=== PATIENT | male | born 1980 | race Caucasian/White ===

== ENCOUNTER 2019-04-20 16:58 | Emergency (ER) | payer SELFPAY ==
--- NOTE | 2019-04-20 17:01 | ER Report ---
History and Physical Time Seen By MD: 16:57 HPI/ROS Tripped over a gas hose at the [place], and fell onto his knee. Hit chin which is now bleeding. Able to ambulate. No complaints of knee pain. Has been holdng pressure on chin wound. No blood thinners. No other complaints. No neck pain or neuro deficits. Remainder of the 14 system rev: Yes Reviewed Nurses Notes: Yes Old Medical Records Reviewed: Yes Constitutional Vital Sign - Last 24 Hours 04/20/19 17:07 Temp 98.1 Pulse 99 Resp 16 B/P (MAP) 137/105 Pulse Ox 94 O2 Delivery Room Air Physical Exam General Appearance: The patient is alert, has no immediate need for airway protection and no current signs of toxicity. Head/face: avulsion to chin. No active bleeding. No laceration. Eyes: Pupils equal and round no injection. Respiratory: Chest is non tender, lungs are clear to auscultation. Cardiac: regular rate and rhythm Musculoskeletal: No bony TTP or swelling at right knee Neck: Neck is supple and non tender. Extremities have full range of motion and are non tender. Skin: chin avulsion and abrasion to right knee Medical Decision Making ED Course/Re-evaluation ED Course No closure needed. No bony TTP on exam, so no imaging needed. No midline c-spine pain. No neuro deficits. Tetnus given. Wound cleaned and dressed. Wound care instructions given. Decision to Disposition Date: Apr 20, 2019 Decision to Disposition Time: 17:35 Depart Departure Latest Vital Signs Vital Signs Date Time Temp Pulse Resp B/P (MAP) Pulse Ox O2 Delivery O2 Flow Rate FiO2 04/20/19 17:07 98.1 99 16 137/105 94 Room Air Impression: Primary Impression: Abrasions of multiple sites Condition: Improved Disposition: HOME OR SELF-CARE Patient Instructions: Acute Wound Care (ED) MARICARMEN PALACIOS MD Apr 20, 2019 17:01
[2019-04-20 17:07] VITALS: BP 137/105
[2019-04-20] MEDS ORDERED: DIPHTH/TETANUS/ACEL. PERTUSSIS IM ONLY ONE (17:30)
== END 2019-04-20 17:56 | disposition home or self-care (01) ==
LOC: ER 17:10
DX: S80.211A Abrasion, right knee, initial encounter (principal); S00.81XA Abrasion of other part of head, initial encounter; W01.0XXA Fall on same level from slipping, tripping and stumbling without subsequent striking against object, initial encounter
CPT/HCPCS: 90471; 90715; 99282

== ENCOUNTER → 2019-04-20 | Outpatient (CLI) | payer SELFPAY | LOC: AMB 16:35 | PROVIDERS: ATTEND Nurse Practitioner | DX: S01.81XA Laceration without foreign body of other part of head, initial encounter (principal); W17.89XA Other fall from one level to another, initial encounter | CPT/HCPCS: A0425; A0429 ==